=== PATIENT | male | born 1945 | race African-American/Black ===

== ENCOUNTER 2024-02-15 11:33 | Inpatient (IN) | payer OTHER ==
[2024-02-15] VITALS (15 sets, daily range): BP systolic 105–130; BP diastolic 45–62; PULSE 66–82; RESP 13–27; TEMP 98.2–99; O2SAT 96–99
[~2024-02-15] VITALS: Ht 182.9 cm; Wt 70.8 kg
[2024-02-15 13:17] LABS: Basophils # (auto) 0 10 ^3/uL (0-0.2); Basophils % (auto) 0.3 % (0.0-2.0); Eosinophils # (auto) 0 10 ^3/uL (0-0.8); Eosinophils % (auto) 0.1 % (0.0-7.0); Hematocrit 11.8 % (41.0-53.0); Lymphocytes # (auto) 0.6 10 ^3/uL (0.4-5.4)
[2024-02-15 13:20] LABS: Lymphocytes % (auto) 6.6 % (10.0-50.0); Mean Corpuscular Hemoglobin 28.5 pg (28.0-32.0); Mean Corpuscular Hgb Conc. 31.6 g/dL (32.0-36.0); Mean Corpuscular Volume 90.2 fL (80.0-100.0); Monocytes # (auto) 0.4 10 ^3/uL (0-1.3); Monocytes % (auto) 4.6 % (0.0-12.0); Neutrophils # (auto) 8.5 10 ^3/uL (1.6-8.6); Neutrophils % (auto) 88.4 % (37.0-80.0); Red Blood Cells 1.31 10^6/uL (4.5-5.90); Red Cell Distribution Width 18.5 % (11.8-14.3); White Blood Cell 9.6 10^3/uL (4.4-10.8)
[2024-02-15 13:25] LABS: Hemoglobin 3.7 g/dL (13.5-17.5)
[2024-02-15 13:48] LABS: Anisocytosis Slight
[2024-02-15 13:49] LABS: Hypochromia Slight; Platelet Estimate Adequate; Polychromasia Slight
[2024-02-15 13:50] LABS: Alanine Aminotransferase 11 U/L (7-40); Alkaline Phosphatase 43 U/L (46-116); Anion Gap 5 (5-15); Aspartate Aminotransferase 12 U/L (13-40); BUN/Creatinine Ratio 18.5 (10.0-20.0); Carbon Dioxide 32 mmol/L (20-30); Chloride 100 mmol/L (98-107); Glucose 113 mg/dL (74-106); Potassium 4.8 mmol/L (3.5-5.1); Sodium 137 mmol/L (136-145)
[2024-02-15 13:51] LABS: Albumin 3.3 g/dL (3.2-4.8); Bilirubin, Total 0.2 mg/dL (0.2-1.0); Total Protein 5.4 g/dL (5.7-8.2)
[2024-02-15 13:54] LABS: Blood Urea Nitrogen 84 mg/dL (9-23)
[2024-02-15 14:47] LABS: COVID19 ANTIGEN SOFIA FIA NEGATIVE (NEGATIVE)
[2024-02-15] MEDS ORDERED: ACETAMINOPHEN 325 MG TAB PO PRN (15:15)
[2024-02-15] MEDS ORDERED: ONDANSETRON HCL 4 MG/2 ML VIAL IV PRN (15:15)
[2024-02-15] MEDS ORDERED: DOCUSATE SOD 100 MG CAP PO PRN (15:15)
[2024-02-15 18:14] LABS: Urine Bacteria None Seen /hpf (None Seen)
[2024-02-15 18:38] LABS: Urine Blood 1+ /uL (Negative); Urine Clarity Turbid (Clear); Urine Color Light-Brown (Yellow); Urine Protein, UAD 1+ (Negative); Urine Specific Gravity 1.009 (1.001-1.035); Urine Urobilinogen 2 mg/dL (Negative); Urine WBC 17 /hpf (0 - 3)
[2024-02-15] MEDS: SODIUM CHLOR 0.9% PF (SALINE LOCK) 10ML VIAL/SYR IV SCH (22:06)
[2024-02-15 22:11] LABS: Hematocrit 16.8 % (41.0-53.0)
[2024-02-15 22:35] LABS: Hemoglobin 5.5 g/dL (13.5-17.5)
[2024-02-16] VITALS (19 sets, daily range): BP systolic 116–170; BP diastolic 49–81; PULSE 61–95; RESP 14–24; TEMP 97.7–98.8; O2SAT 3–99
[2024-02-16 07:50] LABS: Basophils # (auto) 0 10 ^3/uL (0-0.2); Basophils % (auto) 0.4 % (0.0-2.0); Hemoglobin 7.1 g/dL (13.5-17.5); Monocytes # (auto) 0.5 10 ^3/uL (0-1.3); Monocytes % (auto) 5.4 % (0.0-12.0); Neutrophils # (auto) 8.5 10 ^3/uL (1.6-8.6); Nucleated Red Blood Cells % 0.1 %
[2024-02-16 07:51] LABS: Eosinophils # (auto) 0.1 10 ^3/uL (0-0.8); Hematocrit 21.5 % (41.0-53.0); Lymphocytes # (auto) 0.8 10 ^3/uL (0.4-5.4); Lymphocytes % (auto) 7.6 % (10.0-50.0); Mean Corpuscular Hemoglobin 28.8 pg (28.0-32.0); Mean Corpuscular Hgb Conc. 33.2 g/dL (32.0-36.0); Mean Corpuscular Volume 86.8 fL (80.0-100.0); Neutrophils % (auto) 85.6 % (37.0-80.0); Red Blood Cells 2.47 10^6/uL (4.5-5.90); Red Cell Distribution Width 17.5 % (11.8-14.3)
[2024-02-16 08:07] LABS: Alanine Aminotransferase 10 U/L (7-40); Albumin 3.2 g/dL (3.2-4.8); Alkaline Phosphatase 42 U/L (46-116); Anion Gap 6 (5-15); Aspartate Aminotransferase 12 U/L (13-40); BUN/Creatinine Ratio 20.3 (10.0-20.0); Bilirubin, Total 0.3 mg/dL (0.2-1.0); Calcium 9.9 mg/dL (8.7-10.4); Carbon Dioxide 31 mmol/L (20-30); Chloride 105 mmol/L (98-107); Glucose 101 mg/dL (74-106); Potassium 4.6 mmol/L (3.5-5.1); Sodium 142 mmol/L (136-145)
[2024-02-16 08:08] LABS: Total Protein 5.1 g/dL (5.7-8.2)
[2024-02-16 08:09] LABS: Blood Urea Nitrogen 96 mg/dL (9-23)
[2024-02-16] MEDS ORDERED: FURO40TA4 PO (13:05)
[2024-02-16] MEDS ORDERED: TERA2CAP79 PO (13:05)
[2024-02-16] MEDS ORDERED: SPIR25TA8 PO (13:41)
[2024-02-16] MEDS: PANTOPRAZOLE 40 MG/10 ML VIAL INJ IV ONE (17:45)
[2024-02-16 20:20] LABS: % Iron Saturation 37.1 % (20-55)
[2024-02-16 20:28] LABS: INR 1.08 (0.9-1.15); Partial Thromboplastin Time 24.2 SEC (24.5-34.5); Prothrombin Time 11.4 sec (9.3-11.8)
[2024-02-16] MEDS: TERAZOSIN HCL 1 MG CAP PO SCH (21:55)
[2024-02-16] MEDS: ATORVASTATIN 20 MG TAB PO SCH (21:55)
[2024-02-16] MEDS: PANTOPRAZOLE 40 MG/10 ML VIAL INJ IV SCH (21:56)
[2024-02-16 22:52] LABS: Hematocrit 22.3 % (41.0-53.0); Hemoglobin 7.3 g/dL (13.5-17.5)
[2024-02-17] VITALS (8 sets, daily range): BP systolic 124–136; BP diastolic 53–75; PULSE 60–79; RESP 16–18; TEMP 97.6–98.2; O2SAT 3–98
[2024-02-17 06:46] LABS: Eosinophils # (auto) 0.1 10 ^3/uL (0-0.8); Hemoglobin 7.1 g/dL (13.5-17.5); Lymphocytes # (auto) 0.7 10 ^3/uL (0.4-5.4); Lymphocytes % (auto) 7.7 % (10.0-50.0); Monocytes # (auto) 0.6 10 ^3/uL (0-1.3); Red Cell Distribution Width 17.8 % (11.8-14.3)
[2024-02-17 06:48] LABS: Alanine Aminotransferase 12 U/L (7-40); Albumin 3.2 g/dL (3.2-4.8); Alkaline Phosphatase 48 U/L (46-116); Aspartate Aminotransferase 14 U/L (13-40); BUN/Creatinine Ratio 19.7 (10.0-20.0); Calcium 10.1 mg/dL (8.7-10.4); Carbon Dioxide 30 mmol/L (20-30); Cholesterol 81 mg/dL (< 200); Glucose 87 mg/dL (74-106); HDL Cholesterol 23 mg/dL (40-59); LDL Cholesterol 32 mg/dL (< 100); Magnesium 2.3 mg/dL (1.6-2.6); Triglycerides 110 mg/dL (< 150)
[2024-02-17 06:49] LABS: Bilirubin, Total 0.3 mg/dL (0.2-1.0); Potassium 4.8 mmol/L (3.5-5.1); Sodium 143 mmol/L (136-145); Total Protein 5.2 g/dL (5.7-8.2)
[2024-02-17 06:50] LABS: Basophils # (auto) 0.1 10 ^3/uL (0-0.2); Basophils % (auto) 0.6 % (0.0-2.0); Eosinophils % (auto) 1.3 % (0.0-7.0); Hematocrit 21.7 % (41.0-53.0); Mean Corpuscular Hemoglobin 28.8 pg (28.0-32.0); Mean Corpuscular Hgb Conc. 32.8 g/dL (32.0-36.0); Mean Corpuscular Volume 87.8 fL (80.0-100.0); Monocytes % (auto) 6.2 % (0.0-12.0); Neutrophils # (auto) 7.6 10 ^3/uL (1.6-8.6); Neutrophils % (auto) 84.2 % (37.0-80.0); Nucleated Red Blood Cells % 0.1 %; Red Blood Cells 2.47 10^6/uL (4.5-5.90)
[2024-02-17 06:57] LABS: Blood Urea Nitrogen 101 mg/dL (9-23)
[2024-02-17] MEDS ORDERED: SODIUM CHL 0.9% 1000 ML BAG XX ONE (07:00)
[2024-02-17 07:03] LABS: INR 1.08 (0.9-1.15); Prothrombin Time 11.4 sec (9.3-11.8)
[2024-02-17] MEDS ORDERED: OMNIPAQUE 12mg/ml 500ml ORAL SOLUTION PO ONE (08:11)
[2024-02-17] MEDS ORDERED: PANTOPRAZOLE 40 MG/10 ML VIAL INJ IV SCH (10:00)
[2024-02-17] MEDS ORDERED: SODIUM CHLORIDE LOCK 10 ML ONE (10:03)
[2024-02-17 12:12] LABS: Anion Gap 6 (5-15); Chloride 107 mmol/L (98-107)
[2024-02-17] MEDS: SODIUM FERR GLUC 62.5MG/5ML 110 ML IV SCH (12:27)
[2024-02-17] MEDS: LIDOCAINE VISCOUS 2% 15ML UD ONE (15:55)
[2024-02-17] MEDS: MIDAZOLAM HCL 5 MG/ML-1ML VIAL ONE (15:56)
[2024-02-17] MEDS: fentaNYL CITRATE 100 MCG/2 ML VL ONE (15:56)
[2024-02-17] MEDS: EPOETIN ALFA-EPBX 10,000 UNIT/1ML VIAL SC ONE (22:05)
[2024-02-18 01:00] VITALS: BP 131/54; PULSE 70; RESP 18; TEMP 97.6; O2SAT 97
[2024-02-18 05:00] VITALS: BP 137/62; PULSE 70; RESP 17; TEMP 97.8; O2SAT 95
[2024-02-18 08:00] VITALS: PULSE 78; O2SAT 3
[2024-02-18 08:52] LABS: Basophils # (auto) 0 10 ^3/uL (0-0.2); Eosinophils # (auto) 0.1 10 ^3/uL (0-0.8); Hematocrit 21.6 % (41.0-53.0); Lymphocytes # (auto) 0.6 10 ^3/uL (0.4-5.4); Monocytes # (auto) 0.6 10 ^3/uL (0-1.3); Red Blood Cells 2.46 10^6/uL (4.5-5.90)
[2024-02-18 08:54] VITALS: BP 142/72; PULSE 77; RESP 19; TEMP 98; O2SAT 98
[2024-02-18 08:55] LABS: Basophils % (auto) 0.3 % (0.0-2.0); Eosinophils % (auto) 0.8 % (0.0-7.0); Lymphocytes % (auto) 5.9 % (10.0-50.0); Mean Corpuscular Hemoglobin 28.7 pg (28.0-32.0); Mean Corpuscular Hgb Conc. 32.6 g/dL (32.0-36.0); Monocytes % (auto) 5.3 % (0.0-12.0); Neutrophils # (auto) 9.4 10 ^3/uL (1.6-8.6); Neutrophils % (auto) 87.7 % (37.0-80.0); Red Cell Distribution Width 18.4 % (11.8-14.3); White Blood Cell 10.7 10^3/uL (4.4-10.8)
[2024-02-18 09:11] LABS: Albumin 3.2 g/dL (3.2-4.8); Alkaline Phosphatase 52 U/L (46-116); Anion Gap 5 (5-15); Aspartate Aminotransferase 14 U/L (13-40); BUN/Creatinine Ratio 17.3 (10.0-20.0); Bilirubin, Total 0.4 mg/dL (0.2-1.0); Calcium 9.5 mg/dL (8.7-10.4); Carbon Dioxide 33 mmol/L (20-30); Chloride 104 mmol/L (98-107); Glucose 83 mg/dL (74-106); Potassium 4.3 mmol/L (3.5-5.1); Sodium 142 mmol/L (136-145); Total Protein 5.3 g/dL (5.7-8.2)
[2024-02-18 09:16] LABS: Alanine Aminotransferase 9 U/L (7-40); Blood Urea Nitrogen 71 mg/dL (9-23)
[2024-02-18] MEDS: METOPROLOL TARTRATE 25 MG TAB PO SCH (11:51)
[2024-02-18] MEDS: IRON SUCROSE COMPLEX 100 ML IV SCH (12:28)
[2024-02-18 13:34] VITALS: BP 145/65; PULSE 68; RESP 19; TEMP 98.1; O2SAT 95
[2024-02-18 16:01] LABS: Hematocrit 21.3 % (41.0-53.0)
[2024-02-18 16:04] LABS: Hemoglobin 6.9 g/dL (13.5-17.5)
[2024-02-18 17:10] VITALS: BP 143/69; PULSE 70; RESP 19; TEMP 98.2; O2SAT 96
[2024-02-19] MEDS ORDERED: SODIUM CHL 0.9% 1000 ML BAG XX ONE (07:00)
[2024-02-19] MEDS ORDERED: EPOETIN ALFA-EPBX 10,000 UNIT/1ML VIAL SC ONE (21:00)
== END 2024-02-18 18:45 | disposition short-term general hospital (02) | DRG 368 ==
LOC: ER 11:33 → EDBD 11:33 → TELE 15:16 → TELE-EAST 02-16 13:27
PROVIDERS: ADMIT Internal Medicine; ATTEND Internal Medicine
PROC: 30233N1 Transfusion of Nonautologous Red Blood Cells into Peripheral Vein, Percutaneous Approach (ICD-10-PCS; principal; 2024-02-15)
PROC: 0DB98ZX Excision of Duodenum, Via Natural or Artificial Opening Endoscopic, Diagnostic (ICD-10-PCS; 2024-02-17)
PROC: 0DB68ZX Excision of Stomach, Via Natural or Artificial Opening Endoscopic, Diagnostic (ICD-10-PCS; 2024-02-17)
PROC: 0DB58ZX Excision of Esophagus, Via Natural or Artificial Opening Endoscopic, Diagnostic (ICD-10-PCS; 2024-02-17)
PROC: 5A1D70Z Performance of Urinary Filtration, Intermittent, Less than 6 Hours Per Day (ICD-10-PCS; 2024-02-17)
DX: K20.91 Esophagitis, unspecified with bleeding (principal); I21.A1 Myocardial infarction type 2; K29.71 Gastritis, unspecified, with bleeding; N18.6 End stage renal disease; J96.00 Acute respiratory failure, unspecified whether with hypoxia or hypercapnia; K29.81 Duodenitis with bleeding; J98.11 Atelectasis; N25.81 Secondary hyperparathyroidism of renal origin; I13.2 Hypertensive heart and chronic kidney disease with heart failure and with stage 5 chronic kidney disease, or end stage renal disease; I50.42 Chronic combined systolic (congestive) and diastolic (congestive) heart failure; Z20.822 Contact with and (suspected) exposure to COVID-19; D64.9 Anemia, unspecified; E11.22 Type 2 diabetes mellitus with diabetic chronic kidney disease; E78.5 Hyperlipidemia, unspecified; I07.1 Rheumatic tricuspid insufficiency; I27.20 Pulmonary hypertension, unspecified; K44.9 Diaphragmatic hernia without obstruction or gangrene; Z99.2 Dependence on renal dialysis; Z99.81 Dependence on supplemental oxygen; Z87.891 Personal history of nicotine dependence; Z82.49 Family history of ischemic heart disease and other diseases of the circulatory system
CPT/HCPCS: 36415; 43239; 71045; 74176; 80053; 80061; 81001; 82728; 83036; 83540; 83550; 83605; 83735; 83880; 84443; 84484; 85014; 85018; 85025; 85045; 85610; 85730; 86850; 86900; 86901; 86920; 87040; 87426; 90935; 93005; 93306; 99291; G0378; J1756; J2250; J2470